=== PATIENT | male | born 1940 | race Caucasian/White ===

== ENCOUNTER 2022-07-12 07:01 | Day surgery (SDC) | payer MEDICARE, OTHER, SELFPAY ==
[2022-07-12] MEDS: Tropicam./Phenyleph. (1/2.5%) 5 ML BTL OS ×3 (07:44→07:57)
[2022-07-12 07:45] VITALS: BP 163/79; PULSE 59; RESP 16; TEMP 36.5; O2SAT 98
--- NOTE | 2022-07-12 08:12 | W.ANESPRE ---
General Info Date of Service Date Performed: 07/12/22 Height: 5 ft 4.5 in Weight: 80.1 kg Body Mass Index (BMI): 29.8 Surgical Procedure: Operation Date: 07/12/22 09:40 Proposed Procedure Side Surgeon p Cataract Extraction with IOL Implant Left Gorge Kunz MD Meds Allergies and Home Medications Allergies Allergy/AdvReac Type Severity Reaction Status Date / Time naproxen Allergy Severe Anaphylaxis Verified 07/11/22 11:00 finasteride Allergy Other (See Verified 07/11/22 11:00 Comment) lactose Allergy Verified 07/11/22 11:00 lovastatin Allergy Diarrhea Verified 07/11/22 11:00 meloxicam Allergy Other (See Verified 07/11/22 11:00 Comment) pseudoephedrine Allergy Other (See Verified 07/11/22 11:00 Comment) alfuzosin AdvReac Severe Anaphylaxis Verified 07/11/22 11:00 Home Medication Medication Instructions Recorded triamcinolone acetonide 0.1 % 1 applic topical BID PRN 07/11/22 topical cream valacyclovir 500 mg tablet 500 mg PO BID PRN 07/11/22 (Valtrex) Current Visit Medications: Current Medications Generic Name Dose Route Start Last Admin Trade Name Freq PRN Reason Stop Dose Admin Acetaminophen 1,000 mg 07/12/22 06:00 Acetaminophen 500 Mg Tab PO Q4H PRN PRN Miscellaneous Medication 0 ml 07/12/22 06:00 07/12/22 07:57 Tropicam./Phenyleph. 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 Medical History Medical History Hyperlipidemia Hypertensive disorder Kidney stone Obesity Parathyroid gland disorder Spinal stenosis in cervical region Surgical History Surgical History H/O nasal septoplasty H/O repair of rotator cuff left 01/27/2009 History of bunionectomy K-wire fixation, 07/03/12 Hx of appendectomy Hx of colonoscopy 12/02/18 Hx of shoulder surgery debridement, right 10/31/16 Tobacco Smoking/Tobacco Use Status: Former Tobacco Use Alcohol Alcohol Intake: current Alcohol intake frequency: 0-2 drinks per day Alcohol type: beer and wine Substance Use Substance use: Never Substance use type: does not use Vital Signs and Lab Results Vital Signs Most Recent Vital Signs in EMR: Most Recent Vital Signs Temp Pulse Resp BP Pulse Ox 36.5 C 59 L 16 163/79 H 98 07/12/22 07:45 07/12/22 07:45 07/12/22 07:45 07/12/22 07:45 07/12/22 07:45 Lab Results Blood Type / Crossmatch: No Data to Display Complete Blood Count: No Data to Display Complete Metabolic Panel: No Data to Display Liver Function Panel: No Data to Display Coagulation Panel: No Data to Display Cardiac Panel: No Data to Display Arterial Blood Gas: No Data to Display Venous Blood Gas: No Data to Display Pancreas Panel: No Data to Display Thyroid Panel: No Data to Display Infectious Disease: No Data to Display Blood Cultures: No Data to Display Toxicology Panel: No Data to Display Anesthesia Assessment and Plan Anesthesia History Personal History: No History of Anesthesia Complications Family History: No Family History of Anesthesia Complications Exercise Tolerance Exercise Tolerance: Metabolic Equivalents>4 Pertinent Negatives Pertinent Negatives: No Symptoms of GERD Cardiac & Pulmonary Exam Cardiac Exam: Normal S1/S2 Heart Sounds Pulmonary Exam: Clear Bilateral Breath Sounds Implantable Cardiac Device Does patient have a Pacemaker or an ICD?: No Airway Exam Known Difficult Airway: No Mallampati Class: 3 Mouth Opening: Normal (> 3cm) Thyromental Distance: Greater than 3 cm Neck Range of Motion: Full ROM Neck Circumference: Normal Teeth Condition: Normal Dentition ASA Classification ASA Score: ASA 2 Emergency Case?: No NPO Status NPO Status: NPO Clears >2 hours, Solids >8 hours Anesthesia Plan Resuscitation Status: Full Code Anesthesia Technique: MAC Anesthesia Airway Planned: Natural Airway Monitors Used: Standard Monitors
[2022-07-12 08:16] VITALS: BMI 29.8
[2022-07-12] MEDS: Tetracaine 0.5% 4 ML BTL OS (09:06)
[2022-07-12] MEDS: Duovisc Viscoelastic System EACH 1 EACH (09:07)
[2022-07-12] MEDS: Lidocaine 1% Pres-Free 5 ML VIAL (09:07)
[2022-07-12] MEDS: Balanced Salt Soln.-PLUS 500 ML BAG (09:07)
[2022-07-12] MEDS: Phenylephrine/Lidocaine (15/10) MG/ML 1 ML VIAL (09:08)
[2022-07-12] MEDS: Povidone-Iodine Ophth 30 ML BTL (09:08)
[2022-07-12 09:28] VITALS: BP 189/86; PULSE 50; RESP 16; TEMP 37.1; O2SAT 98
--- NOTE | 2022-07-12 09:29 | W.PM.DSUDISC ---
Date of service: 07/12/22 Time of Service: 09:30 Discharge Plan Disposition Patient Disposition: Home Discharge Details Attending Provider: Gorge Kunz Primary Care Provider: MAXWELL DOMÍNGUEZ Home Meds and New Rx's Prescriptions: No Action valacyclovir [Valtrex] 500 mg Tablet 500 mg PO BID PRN triamcinolone acetonide 0.1 % Cream 1 applic TOPICAL BID PRN Discharge Instructions Stand Alone Forms: Post-op Topical Cataract, Darby Yuen (DSU) Discharge Orders Discharge Orders: Discharge Order (Routine); Ordered 07/12/22 Ordered By: Gorge Kunz DS: Diagnosis Discharge Diagnosis (1) Nuclear age-related cataract, left eye: Status: Resolved
--- NOTE | 2022-07-12 09:31 | W.PM.OP ---
Date of service: 07/12/22 Time of Service: 09:31 Operative Note Operative Note DATE OF PROCEDURE: 07/12/22 PRE-OP DIAGNOSIS: Dense nuclear cataract, left eye POST-OP DIAGNOSIS: same PROCEDURE: Cataract extraction using phacoemulsification with intraocular lens implant, left eye SURGEON: Gorge Kunz ANESTHESIA TYPE: Local By Surgeon and MAC Refer to Anesthesia Record PATHOLOGY: none sent COMPLICATIONS: None Patient was transported to: same day Patient's condition: stable Implants: Dionte and Dionte Tecnis Eyhance [id number] Indications: Progressive decreased vision due to cataract, left eye Procedure Description: CATARACT SURGERY OPERATIVE REPORT PREOPERATIVE DIAGNOSIS: 1. Dense nuclear cataract, left eye POSTOPERATIVE DIAGNOSIS: Same OPERATION: 1. Cataract extraction using phacoemulsification with posterior chamber intraocular lens implant, left eye. IOL: IOL Back End Engineer/Model: Dionte & Dionte Tecnis Eyhance [id number] IOL Power: + 21.5 diopters IOL Serial Number: [id number] Optic Diameter: 6.0 mm Haptic/Overall Diameter: 13.0 mm PHACO INFO: KaelTinteo Vision System with OZil and Active Fluidics Cumulative Dispersed Energy (CDE): 25.81 seconds SURGEON: Gorge Kunz MD, LESLIE ANESTHESIA: Monitored A [facility] (MAC), with local sub-tenon's anesthetic infiltration COMPLICATIONS: None SPECIMENS: None INDICATIONS FOR PROCEDURE: See clinical chart for detailed information. The patient is a 81-year-old gentleman with history of progressive decreased vision in his left eye. He is noted significant diminished visual acuity in his left eye secondary to the development of dense nuclear cataract. The option of cataract surgery was offered to the patient and he wished to proceed. PROCEDURE: The correct surgical eye was identified and marked as the left eye and the pupil was dilated in the preoperative area using mydriatics and cycloplegics. The dilated pupil size was 6.0 mm. The patient elected to proceed without oral sedation. The patient was brought to the operating room where cardiopulmonary monitoring was instituted and surgical time-out was performed, confirming the correct operative eye and IOL power. Topical anesthesia was administered and ophthalmic povidone-iodine 5% was instilled into the conjunctival fornices. Lidocaine gel was applied to the cornea and the maren-ocular area was prepped with Betadine 10% solution and draped in the usual sterile fashion for intraocular surgery, including an aperture drape. A Tegaderm transparent film dressing was cut in half and used to cover the lashes and lid margins. Care was taken to sequester the lashes and lid margins under the Tegaderm dressing. A lid speculum was placed between the lids of the operative eye and the Kael LuxOR Revalia operating microscope was maneuvered into position. Briseida scissors were then used to make a conjunctival buttonhole approximately 6mm posterior to the limbus in the inferonasal quadrant. Blunt dissection was carried out to expose bare sclera, and a blunt-tipped sub-tenon?s anesthesia cannula was introduced and passed posteriorly along the globe where non-preserved plain lidocaine was injected into posterior sub-Tenon?s space. A sideport knife was used to make a paracentesis port superiorly/superiortemporally. Intraocular phenylephrine/lidocaine was injected int the anterior chamber.. The anterior chamber was filled with viscoelastic. A keratome knife was used to construct a 2-plane near-clear corneal tunnel extending 2.0mm into clear cornea temporally. A flap was raised on the anterior capsule and capsulorhexis forceps were used to complete a continuous curvilinear capsulorhexis of 5.5 mm. Balanced salt solution was then used to perform cortical cleaving hydrodissection and nuclear hydrodelineation until the lens could be freely rotated within the capsular bag. The lens nucleus was then disassembled and removed within the capsular bag and iris plane using phacoemulsification. Residual cortical material was removed using the 45-degree angled silicone I/A tip with 0.3mm port. The posterior capsule was carefully polished to remove as much residual lens epithelial cells as safely possible. The capsular bag was then inflated and the anterior chamber deepened with viscoelastic. The lens implant described above was inserted into the capsular bag using the Dionte and Dionte Simplicity pre-loaded injector. . A Kuglen hook was used to dial the IOL into position. Residual viscoelastic was then removed first from posterior to the IOL, then from the anterior chamber using the I/A handpiece. The lens implant was noted to center nicely within the capsular bag. The incisions were stromally hydrated, and the anterior chamber was reformed using BSS. Then 0.5cc of moxifloxacin 1.0mg/ml were injected into the capsular bag and anterior chamber. The incisions were checked with a Weck spear and found to be secure. Several drops of ophthalmic povidone-iodine 5% were then applied to the eye followed by two drops of Imprimis combination prednisolone/moxifloxacin/nepafenac solution. The drapes were removed and a clear plastic protective eye shield was placed over the eye. The patient was then returned to [facility] Day Surgery in stable condition.
--- NOTE | 2022-07-12 09:46 | W.ANESPOSTOP ---
Postoperative Evaluation Date, Time and Location Date Performed: 07/12/22 Time Performed: 09:46 Patient Location: Day Surgery Unit Vital Signs Most Recent Imported Vital Signs: Most Recent Vital Signs Temp Pulse Resp BP Pulse Ox 37.1 C 50 L 16 189/86 H 98 07/12/22 09:28 07/12/22 09:28 07/12/22 09:28 07/12/22 09:28 07/12/22 09:28 Pain Score Most Recent Pain Score: Most Recent Pain Score Pain Level 0 07/12/22 09:28 Assessment Mental Status: Awake (Alert & Oriented to Patient Baseline) Airway and Respiratory Function: Patent airway with normal (patient baseline) respiratory exam Cardiovascular Function: Hemodynamically Stable Hydration Status: Adequately Hydrated Nausea & Vomiting: No Nausea or Vomiting Pain: Pt. Denies Any Pain Peripheral Nerve Block: Patient did not receive a nerve block
== END 2022-07-12 09:55 | disposition home or self-care (01) ==
PROVIDERS: PCP Registered Nurse; Visit Provider Ophthalmology
PROC: (CPT 66984; principal; 2022-07-12 09:30)
DX: H25.12 Age-related nuclear cataract, left eye (principal); I10 Essential (primary) hypertension; E66.8 Other obesity
CPT/HCPCS: 66984; V2632